=== PATIENT | male | born 1985 | race Caucasian/White ===

== ENCOUNTER → 2021-04-25 | Outpatient (CLI) | payer BC ==
--- NOTE | 2021-04-25 22:24 | CONS ---
CONSULTATION DATE OF SERVICE: 04/25/2021. 35-year-old gentleman has been evaluated in the sleep center for possible obstructive sleep apnea-hypopnea syndrome. HISTORY OF PRESENT ILLNESS/SLEEP WAKE EVALUATION: SLEEP SCHEDULE: Patient's usual sleep schedule during the weekdays from 9 p.m. to 5:30 a.m. On weekends from 9 p.m. until also 5:30 a.m. FALLING ASLEEP: No problems with falling asleep, although he has a TV set in bedroom. DURING SLEEP: Usually he sleeps on the side position. According to his he has loud snoring. He wakes up from sleep 2 times and once with nocturia. Positive history of heartburn. DURING THE DAY/SLEEP WAKE EVALUATION: In the morning, patient wakes up tired, may take one nap around 4:30 pm. [place] Sleepiness Scale is 3, which is normal. No history of hypnagogic hallucinations, sleep paralysis or cataplexy. 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 MEDICATIONS: None. PAST SURGICAL HISTORY: None. FAMILY HISTORY: Heart problems. REVIEW OF SYSTEMS: Awakenings from sleep, loud snoring. PHYSICAL EXAMINATION: GENERAL: gentleman without distress. BP 173/97, HR 95, RR 18, height 5 feet 10 inches 3/4 inches, weight 221.2 pounds with BMI 31.7, temperature 97.1. Oxygen saturation on room air 98%. HEENT: Oropharynx low position of soft palate. Mallampati 3. NECK is wide; 17 inches in circumference. Neck: Supple, no JVD. Thyroid is not palpable. LUNGS: Clear to percussion and to auscultation. Good air exchange. No wheezing or rhonchi. HEART: S1, S2 regular. No murmurs, gallops, or rubs. ABDOMEN: Soft and nontender. Bowel sounds are present. No organomegaly appreciated. EXTREMITIES: No clubbing or cyanosis. 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 Cranial nerves 2 to 7 intact. There is no fasciculation or atrophy. noted. No focal deficits observed. IMPRESSION: 1. Loud snoring, awakenings from sleep with heartburn and nocturia. Low position of soft palate, Mallampati wide neck is 17 inches in circumference, obstructive sleep apnea-hypopnea syndrome. 2. Mild obesity, body mass index 31.7. 3. Hypertension in the office. BP today 173/97. 4. Loud snoring. PLAN: 1. Home sleep apnea test for evaluation of patient's breathing during sleep. 2. CPAP/BiPAP titration if sleep study confirms obstructive sleep apnea-hypopnea syndrome. 3. Preferable position during sleep on the side. 4. No driving if patient feels any sleepiness. 5. I will see patient for follow up visit to explain results of testing and following plan. Sincerely, Terrell Manzanares MD, PhD, FAASM Diplomat of [employer] Exchange Specialist [facility] [place] MMODL / IJN: [id number] /
== END | disposition home or self-care (01) ==
LOC: SLEEP 15:35
PROVIDERS: ATTEND Internal Medicine
DX: G47.33 Obstructive sleep apnea (adult) (pediatric) (principal); I10 Essential (primary) hypertension; E66.9 Obesity, unspecified; Z68.31 Body mass index [BMI] 31.0-31.9, adult; R12 Heartburn; R35.1 Nocturia
CPT/HCPCS: 99202